=== PATIENT | female | born 1940 | race Caucasian/White ===

== ENCOUNTER 2021-07-06 07:20 | Day surgery (SDC) | payer MEDICARE, BC ==
[~2021-07-06 07:20] MED LIST: Lactated Ringers 1,000 ML IV SCH; Lidocaine 1%/Sod Bicarbonate in NS 8.4% 1 ML Syringe IDERM PRN; Morphine 8 MG, EPINEPHrine 0.3 MG, Cefuroxime 750 MG, Ketorolac 30 MG, Sodium Chloride ... PRN
== END 2021-07-06 09:15 | disposition home or self-care (01) ==
LOC: JD.SDS 07:20
PROVIDERS: ATTEND Orthopaedic Surgery
DX: R03.0 Elevated blood-pressure reading, without diagnosis of hypertension (principal); Z53.09 Procedure and treatment not carried out because of other contraindication; E11.22 Type 2 diabetes mellitus with diabetic chronic kidney disease; E03.9 Hypothyroidism, unspecified; N18.9 Chronic kidney disease, unspecified; Z88.8 Allergy status to other drugs, medicaments and biological substances; Z79.890 Hormone replacement therapy; Z79.899 Other long term (current) drug therapy
CPT/HCPCS: J7120

== ENCOUNTER 2022-01-07 08:30 | Day surgery (SDC) | payer MEDICARE, BC ==
[~2022-01-07 08:30] MED LIST changes: +EPINEPHRINE PRN; +MORPHINE PRN; -Morphine 8 MG, EPINEPHrine 0.3 MG, Cefuroxime 750 MG, Ketorolac 30 MG, Sodium Chloride ... PRN; +Morphine 8 MG, EPINEPHrine 0.3 MG, Ketorolac 30 MG, Sodium Chloride 0.9% 7.9 ML PRN; +SODIUM CHLORIDE 0.9% PRN; +Sodium Chloride 0.9% 10 ML Syringe FLUSH PRN; +Sodium Chloride 0.9% 10 ML Syringe FLUSH SCH
[2022-01-07] MEDS ORDERED: Vancomycin 1 GM SDV ONE (08:31)
[2022-01-07] MEDS ORDERED: Tranexamic Acid 1,000 MG/10 ML Vial ONE (08:31)
[2022-01-07] MEDS ORDERED: Bupivacaine 0.25% 10 ML SDV ONE (08:53)
[2022-01-07] MEDS ORDERED: Triamcinolone Acetonide 40 MG/ML 1 ML SDV ONE (08:53)
[2022-01-07] MEDS ORDERED: Propofol 200 MG/20 ML SDV ONE ×2 (09:47→10:41)
[2022-01-07] MEDS ORDERED: ceFAZolin 2 GM Vial ONE (09:48)
[2022-01-07] MEDS ORDERED: ePHEDrine 50 MG/ML SDV ONE (09:48)
[2022-01-07] MEDS ORDERED: fentaNYL 100 MCG/2 ML SDV ONE (09:48)
[2022-01-07] MEDS ORDERED: Ondansetron 4 MG/2 ML SDV ONE (09:54)
[2022-01-07] MEDS ORDERED: Sodium Chloride 0.9% 250 ML IV SCH (10:00)
[2022-01-07] MEDS ORDERED: Sodium Chloride 0.9% 250 ML ONE (10:04)
[2022-01-07 10:15] LABS: ESTIMATED GFR 34 mL/min (>60)
[2022-01-07] MEDS ORDERED: Ondansetron 4 MG/2 ML SDV IVPUSH PRN (10:19)
[2022-01-07] MEDS ORDERED: HYDROmorphone 0.5 MG/0.5 ML Syringe IVPUSH PRN (10:19)
[2022-01-07] MEDS ORDERED: Dexmedetomidine 200 MCG/2 ML SDV ONE (10:30)
[2022-01-07] MEDS ORDERED: Ropivacaine 0.5% 5 MG/ML 30 ML SDV ONE (12:29)
[2022-01-07] MEDS: fentaNYL 100 MCG/2 ML SDV IVPUSH PRN ×2 (12:30→12:57)
[2022-01-07] MEDS ORDERED: Dexamethasone 4 MG/ML 5 ML MDV ONE (12:30)
[2022-01-07] MEDS ORDERED: Acetaminophen/HYDROcodone 325-5 MG Tab PO SCH (14:52)
== END 2022-01-07 17:20 | disposition home or self-care (01) ==
LOC: JD.SDS 08:30
PROVIDERS: ATTEND Orthopaedic Surgery
DX: M17.0 Bilateral primary osteoarthritis of knee (principal); G89.29 Other chronic pain; E03.9 Hypothyroidism, unspecified; N18.9 Chronic kidney disease, unspecified; E11.22 Type 2 diabetes mellitus with diabetic chronic kidney disease; I12.9 Hypertensive chronic kidney disease with stage 1 through stage 4 chronic kidney disease, or unspecified chronic kidney disease; Z98.890 Other specified postprocedural states; Z79.899 Other long term (current) drug therapy; Z88.8 Allergy status to other drugs, medicaments and biological substances; Z88.0 Allergy status to penicillin; Z90.49 Acquired absence of other specified parts of digestive tract; Z79.890 Hormone replacement therapy
CPT/HCPCS: 0055T; 20610; 27447; 36415; 73560; 80048; 85610; 85730; 97110; 97116; 97161; A9270; C1713; C1776; J0171; J0690; J1100; J2270; J2405; J2704; J2795; J3010; J3301; J3370; J3490; J7050; J7120; 01402; 64450; 76942